=== PATIENT | female | born 1975 | race Caucasian/White ===

== ENCOUNTER → 2017-03-17 | Outpatient (CLI) | payer OTHER | END | disposition home or self-care (01) | LOC: CFH 13:37 | PROVIDERS: ATTEND Nurse Practitioner | DX: N63 Unspecified lump in breast (principal) | CPT/HCPCS: 76641; G0204 ==

== ENCOUNTER → 2017-03-17 | Outpatient (CLI) | payer OTHER ==
[2017-03-17 07:34] LABS: BLOOD UREA NITROGEN 12 mg/dL (7-18)
[2017-03-17 07:59] LABS: ASPARTATE AMINO TRANSFERASE 17 U/L (15-37)
[2017-03-18 13:06] LABS: CREATININE URINE 194.5 mg/dL (Not Estab.)
[2017-03-23 01:08] LABS: FREE T4 BY DIALYSIS/MASS SPEC 0.92 ng/dL (.)
== END | disposition home or self-care (01) ==
LOC: LAB 07:03
PROVIDERS: ATTEND Internal Medicine Critical Care Medicine
DX: I10 Essential (primary) hypertension (principal); R00.2 Palpitations
CPT/HCPCS: 36415; 80053; 80061; 82043; 82570; 82607; 84439; 84443; 84479; 85025; 86376

== ENCOUNTER → 2017-03-23 | Outpatient (CLI) | payer OTHER | END | disposition home or self-care (01) | LOC: LAB 16:39 | PROVIDERS: ATTEND Nurse Practitioner | DX: E83.52 Hypercalcemia (principal) | CPT/HCPCS: 36415; 82310; 82330; 83970 ==

== ENCOUNTER → 2017-03-24 | Outpatient (CLI) | payer OTHER | END | disposition home or self-care (01) | LOC: CVU 07:31 | PROVIDERS: ATTEND Internal Medicine Cardiovascular Disease | DX: I51.7 Cardiomegaly (principal); I34.0 Nonrheumatic mitral (valve) insufficiency; I37.1 Nonrheumatic pulmonary valve insufficiency; I10 Essential (primary) hypertension | CPT/HCPCS: 93306 ==

== ENCOUNTER → 2017-04-22 | Outpatient (CLI) | payer OTHER ==
[~2017-04-22] MED LIST: ESTR1PAT65 TD; IBUP200T5 PO; VALS80TA3 PO
[2017-04-22 11:39] LABS: ASPARTATE AMINO TRANSFERASE 14 U/L (15-37); BLOOD UREA NITROGEN 12 mg/dL (7-18)
== END | disposition home or self-care (01) ==
LOC: STAR 10:26
PROVIDERS: ATTEND Surgery
DX: Z01.818 Encounter for other preprocedural examination (principal)
CPT/HCPCS: 36415; 80053; 93005

== ENCOUNTER 2017-05-02 06:05 | Observation (INO) | payer OTHER ==
[~2017-05-02] VITALS: Ht 170.2 cm; Wt 134.0 kg
[2017-05-02 06:30] VITALS: BP 138/83
[2017-05-02] MEDS ORDERED: BUPIVACAINE/PF-EPI 0.5% 1:200K ONE (06:51)
[2017-05-02] MEDS ORDERED: MIDAZOLAM 1 MG/ML, 2ML ONE (06:55)
[2017-05-02] MEDS ORDERED: FENTANYL PF 250 MCG/5ML ONE (06:55)
[2017-05-02] MEDS ORDERED: LACTATED RINGERS 1,000 ML IV SCH ×2 (06:56→18:30)
[2017-05-02] MEDS ORDERED: ONDANSETRON 2MG/ML, 2ML ONE (07:38)
[2017-05-02] MEDS ORDERED: PROPOFOL 10 MG/ML, 20ML ONE (07:38)
[2017-05-02] MEDS ORDERED: EPHEDRINE 50 MG/ML, 1ML ONE (07:38)
[2017-05-02] MEDS ORDERED: SUCCINYLCHOLINE 20 MG/ML, 10ML ONE (07:38)
[2017-05-02] MEDS ORDERED: METOCLOPRAMIDE 5 MG/ML, 2ML ONE (07:38)
[2017-05-02] MEDS ORDERED: LIDOCAINE 2%, 10ML ONE (07:38)
[2017-05-02] MEDS ORDERED: PROPOFOL 10 MG/ML, 50ML ONE (07:38)
[2017-05-02] MEDS ORDERED: DEXAMETHASONE 4 MG/ML, 1ML ONE (07:38)
[2017-05-02 09:22] LABS: IOPTH BASELINE 190 pg/mL; SAMPLE 5 %DROP IOPTH 85 %
[2017-05-02] MEDS: FENTANYL PF 100 MCG/2ML IV PRN ×2 (09:30→09:55)
[2017-05-02] MEDS ORDERED: FENTANYL PF 100 MCG/2ML ONE (09:30)
[2017-05-02] MEDS ORDERED: ACETAMINOPHEN 650 MG/20.3 ML UDC ONE (09:52)
[2017-05-02] MEDS ORDERED: OXYcodone 5 MG/5 ML ORAL.SOL UDC ONE (09:52)
[2017-05-02] MEDS ORDERED: ONDANSETRON 2MG/ML, 2ML IVPush PRN ×2 (10:00→18:30)
[2017-05-02] MEDS ORDERED: hydrALAzine 20 MG/ML, 1ML IV PRN (10:00)
[2017-05-02] MEDS ORDERED: OXYcodone 5 MG/5 ML ORAL.SOL UDC PO PRN (10:00)
[2017-05-02] MEDS ORDERED: METOCLOPRAMIDE 5 MG/ML, 2ML IV PRN (10:00)
[2017-05-02] MEDS ORDERED: ACETAMINOPHEN 325 MG TABLET PO PRN (10:00)
[2017-05-02] MEDS ORDERED: LABETALOL 5MG/ML, 20ML IV PRN (10:00)
[2017-05-02] MEDS ORDERED: HYDROmorphone 1 MG/ML, 1ML IV PRN (10:00)
[2017-05-02] MEDS ORDERED: HYDROcodone/APAP 5/325 TABLET ONE (13:48)
[2017-05-02] MEDS ORDERED: HYDROcodone/APAP 5/325 TABLET PO ONE (14:00)
[2017-05-02] MEDS ORDERED: HYDROcodone/APAP 5/325 TABLET PO PRN (18:00)
[2017-05-02 18:24] VITALS: BP 132/76
[2017-05-02] MEDS: KETOROLAC 30 MG/1 ML IV PRN (20:21)
[2017-05-03 00:01] VITALS: BP 105/61
[2017-05-03 04:17] VITALS: BP 116/62
[2017-05-03] MEDS: KETOROLAC 30 MG/1 ML IV PRN (05:05)
[2017-05-03 07:24] VITALS: BP 119/75
[2017-05-03] MEDS ORDERED: HYDR-3240 PO (10:08)
[2017-05-03] MEDS ORDERED: CALC-126 PO (10:09)
== END 2017-05-03 10:43 | disposition home or self-care (01) ==
LOC: OUT 06:05 → ORIP 17:19 → 4NOR 18:10 → DCLOUNGE 05-03 09:53
PROVIDERS: ADMIT Surgery; ATTEND Surgery
DX: E21.0 Primary hyperparathyroidism (principal); E66.01 Morbid (severe) obesity due to excess calories; R09.02 Hypoxemia; I10 Essential (primary) hypertension; R63.4 Abnormal weight loss; F17.210 Nicotine dependence, cigarettes, uncomplicated; Z90.710 Acquired absence of both cervix and uterus
CPT/HCPCS: 36415; 60500; 83970; 88305; 95865; 95940; 96374; 96376; G0378; J0330; J1100; J1885; J2250; J2405; J2704; J2765; J3010; J3490; J7120

== ENCOUNTER → 2017-06-27 | Outpatient (CLI) | payer OTHER ==
[~2017-06-27] MED LIST changes: +CALC-126 PO; +HYDR-3240 PO
== END | disposition home or self-care (01) ==
LOC: LAB 17:56
PROVIDERS: ATTEND Surgery
DX: E83.51 Hypocalcemia (principal)
CPT/HCPCS: 36415; 82310; 83970

== ENCOUNTER 2019-12-18 02:11 | Emergency (ER) | payer OTHER ==
[~2019-12-18] VITALS: Ht 172.7 cm; Wt 136.3 kg
[~2019-12-18 02:11] MED LIST changes: +IBUP-1902 PO; -IBUP200T5 PO
[2019-12-18] MEDS ORDERED: ACETAMINOPHEN 500 MG TABLET PO ONE (03:00)
[2019-12-18] MEDS ORDERED: ACETAMINOPHEN 500 MG TABLET ONE (03:02)
--- NOTE | 2019-12-18 03:05 | NUR ---
assessment made. hooked to monitor. medicated for fever.
[2019-12-18 03:07] LABS: BASOPHILS # (AUTO) 0.03 x10^3/uL (0-0.1); BASOPHILS % (AUTO) 1 % (0-1); EOSINOPHILS # (AUTO) 0.03 x10^3/uL (0-0.4); EOSINOPHILS % (AUTO) 1 % (1-7); LYMPHOCYTES # (AUTO) 0.89 x10^3/uL (1-3.4); LYMPHOCYTES % (AUTO) 21 % (22-44); MD NO; MEAN CORPUSCULAR HEMOGLOBIN 29.6 pg (27.0-34.8); MEAN CORPUSCULAR HGB CONC 34.3 g/dL (32.4-35.8); MEAN CORPUSCULAR VOLUME 86.2 fL (80-100); MEAN PLATELET VOLUME 9.3 fL (7.4-10.4); MONOCYTES # (AUTO) 0.72 x10^3/uL (0.2-0.8); MONOCYTES % (AUTO) 17 % (2-9); NEUTROPHILS # (AUTO) 2.66 x10^3/uL (1.8-6.8); NEUTROPHILS % (AUTO) 61 % (42-75); PLATELET COUNT 174 x10^3/uL (130-400); RED BLOOD COUNT 4.73 x10^6/uL (3.82-5.3); RED CELL DISTRIBUTION WIDTH 12.8 % (9.6-15.2)
[2019-12-18 03:14] LABS: ALBUMIN 3.7 g/dL (3.4-5.0); ANION GAP 7 mmol/L (5-15); CALCIUM 8.9 mg/dL (8.5-10.1); CHLORIDE 109 mmol/L (98-107); CREATININE 1.09 mg/dL (0.55-1.02)
--- NOTE | 2019-12-18 04:30 | NUR ---
re-evaluation done. patient discharged with instruction. verbalized understanding.
[2019-12-18 04:31] VITALS: BP 111/69
== END 2019-12-18 04:37 | disposition home or self-care (01) ==
LOC: ED 03:39
DX: B34.9 Viral infection, unspecified (principal); I10 Essential (primary) hypertension; F17.200 Nicotine dependence, unspecified, uncomplicated
CPT/HCPCS: 36415; 71045; 80048; 82040; 85025; 93005; 99285

== ENCOUNTER 2020-08-17 18:16 | Emergency (ER) | payer OTHER ==
[~2020-08-17] VITALS: Ht 172.7 cm; Wt 134.3 kg
[2020-08-17] MEDS ORDERED: SODIUM CHLORIDE FLUSH 10ML SYR IVF ONE (19:30)
[2020-08-17] MEDS ORDERED: DIAZEPAM 5 MG/ML, 2ML IV ONE (19:30)
[2020-08-17] MEDS ORDERED: DIAZEPAM 5 MG/ML, 2ML ONE (19:36)
[2020-08-17 20:21] VITALS: BP 136/82
== END 2020-08-17 21:04 | disposition home or self-care (01) ==
LOC: ED 20:56
DX: M54.12 Radiculopathy, cervical region (principal)
CPT/HCPCS: 72050; 96374; 99283; J3360

== ENCOUNTER → 2020-09-04 | Outpatient (CLI) | payer OTHER ==
[~2020-09-04] MED LIST changes: +GABA300C PO; +HYDR-3237 PO; +LOSA100T14 PO; +PANT40TA3 PO; +estradiol patch TD
[2020-09-04 14:35] LABS: MICROSCOPIC NOT IND
[2020-09-04 14:39] LABS: ALBUMIN 3.7 g/dL (3.4-5.0); ANION GAP 6 mmol/L (5-15); CALCIUM 9.3 mg/dL (8.5-10.1); CHLORIDE 107 mmol/L (98-107)
[2020-09-04 14:42] LABS: BASOPHILS % (AUTO) 1 % (0-1); EOSINOPHILS % (AUTO) 2 % (1-7); LYMPHOCYTES % (AUTO) 25 % (22-44); MEAN CORPUSCULAR HEMOGLOBIN 28.6 pg (27.0-34.8); MEAN CORPUSCULAR HGB CONC 33.2 g/dL (32.4-35.8); MEAN PLATELET VOLUME 8.6 fL (7.4-10.4); MONOCYTES % (AUTO) 9 % (2-9); NEUTROPHILS % (AUTO) 63 % (42-75); PLATELET COUNT 285 x10^3/uL (130-400); RED BLOOD COUNT 4.74 x10^6/uL (3.82-5.3)
[2020-09-04 14:43] LABS: ALANINE AMINOTRANSFERASE 22 U/L (12-78); ALKALINE PHOSPHATASE 75 U/L (45-117); BILIRUBIN,TOTAL 0.3 mg/dL (0.2-1.0); CREATININE 0.84 mg/dL (0.55-1.02); TOTAL PROTEIN 7.5 g/dL (6.4-8.2)
[2020-09-04 14:47] LABS: MD NO
[2020-09-04 14:54] LABS: INTERNATIONAL NORMALIZED RATIO 0.9 (0.93-1.1); PROTHROMBIN TIME 9.6 Seconds (9.6-11.5)
== END | disposition home or self-care (01) ==
LOC: STAR 12:55
PROVIDERS: ATTEND Neurological Surgery
DX: Z01.812 Encounter for preprocedural laboratory examination (principal); Z01.810 Encounter for preprocedural cardiovascular examination; Z01.811 Encounter for preprocedural respiratory examination; Z20.828 Contact with and (suspected) exposure to other viral communicable diseases; R82.90 Unspecified abnormal findings in urine; R94.31 Abnormal electrocardiogram [ECG] [EKG]; R79.1 Abnormal coagulation profile; M50.122 Cervical disc disorder at C5-C6 level with radiculopathy; M48.02 Spinal stenosis, cervical region; M50.121 Cervical disc disorder at C4-C5 level with radiculopathy
CPT/HCPCS: 36415; 71046; 80053; 81003; 85025; 85610; 85730; 87635; 93005

== ENCOUNTER 2020-09-09 05:40 | Inpatient (IN) | payer OTHER ==
[~2020-09-09] VITALS: Ht 170.2 cm; Wt 139.5 kg
[2020-09-09 06:07] VITALS: BP 142/93
[2020-09-09] MEDS ORDERED: CHLORHEXIDINE 15 ML UDC ONE (06:12)
[2020-09-09] MEDS ORDERED: BUPIVACAINE/PF 0.5% ONE (06:23)
[2020-09-09] MEDS ORDERED: EPINEPHRINE 1 MG/ML, 1ML ONE (06:23)
[2020-09-09] MEDS ORDERED: BACITRACIN 50,000 UNIT ONE (06:24)
[2020-09-09] MEDS ORDERED: LACTATED RINGERS 1,000 ML IV SCH (06:30)
[2020-09-09] MEDS ORDERED: CHLORHEXIDINE 15 ML UDC MM ONE (06:30)
[2020-09-09] MEDS ORDERED: MIDAZOLAM 1 MG/ML, 2ML ONE (06:52)
[2020-09-09] MEDS ORDERED: FENTANYL PF 250 MCG/5ML ONE (06:52)
[2020-09-09] MEDS ORDERED: DIPHENHYDRAMINE 50 MG/ML, 1ML IVPush PRN ×2 (07:00→10:00)
[2020-09-09] MEDS ORDERED: PROMETHAZINE 25 MG/ML, 1ML IVPush PRN (07:00)
[2020-09-09] MEDS ORDERED: HYDROcodone/APAP 7.5-325MG/15ML UDC PO PRN (07:00)
[2020-09-09] MEDS ORDERED: MEPERIDINE/PF 25MG/0.5ML IVPush PRN (07:00)
[2020-09-09] MEDS ORDERED: hydrALAzine 20 MG/ML, 1ML IV PRN (07:00)
[2020-09-09] MEDS ORDERED: HALOPERIDOL 5 MG/ML IV PRN (07:00)
[2020-09-09] MEDS ORDERED: HYDROmorphone 1 MG/ML, 1ML INJ IVPush PRN (07:00)
[2020-09-09] MEDS ORDERED: CEFAZOLIN 1,000 MG ONE ×2 (07:02→08:58)
[2020-09-09] MEDS ORDERED: FENTANYL PF 100 MCG/2ML ONE ×3 (08:54→09:55)
[2020-09-09] MEDS ORDERED: DEXAMETHASONE 4 MG/ML, 1ML ONE (08:58)
[2020-09-09] MEDS ORDERED: GLYCOPYRROLATE 0.2MG/1ML, 5ML ONE (08:58)
[2020-09-09] MEDS ORDERED: PROPOFOL 10 MG/ML, 20ML ONE (08:58)
[2020-09-09] MEDS ORDERED: ROCURONIUM 10MG/ML,5ML ONE (08:58)
[2020-09-09] MEDS ORDERED: SUCCINYLCHOLINE 20 MG/ML, 10ML ONE (08:58)
[2020-09-09] MEDS ORDERED: ONDANSETRON 2MG/ML, 2ML ONE (08:58)
[2020-09-09] MEDS ORDERED: NEOSTIGMINE 1 MG/ML, 10ML ONE (08:58)
[2020-09-09] MEDS: FENTANYL PF 100 MCG/2ML IV PRN ×4 (09:35→10:12)
[2020-09-09] MEDS ORDERED: LABETALOL 5MG/ML, 20ML ONE (09:45)
[2020-09-09] MEDS: LABETALOL 5MG/ML, 20ML IV PRN ×2 (09:49→10:04)
[2020-09-09] MEDS ORDERED: HYDROcodone/APAP 7.5-325MG/15ML UDC ONE (09:56)
[2020-09-09] MEDS ORDERED: PROMETHAZINE 25 MG/ML, 1ML IM PRN (10:00)
[2020-09-09] MEDS ORDERED: METHOCARBAMOL 1,000 MG in DEXTROSE 5% 100 ML IV ONE (10:00)
[2020-09-09] MEDS ORDERED: LOSARTAN 100 MG TAB PO SCH (10:00)
[2020-09-09] MEDS: SODIUM CHLORIDE FLUSH 10ML SYR IVF SCH ×2 (10:00→20:30)
[2020-09-09] MEDS ORDERED: BISACODYL 10 MG SUPP PR PRN (10:00)
[2020-09-09] MEDS ORDERED: HYDROcodone/APAP 5/325 TABLET PO PRN (10:00)
[2020-09-09] MEDS ORDERED: ONDANSETRON 2MG/ML, 2ML IVPush PRN (10:00)
[2020-09-09] MEDS ORDERED: SENNA/DOCUSATE TABLET PO PRN (10:00)
[2020-09-09] MEDS ORDERED: ACETAMINOPHEN 325 MG TABLET PO PRN (10:00)
[2020-09-09] MEDS ORDERED: PHARMACY MAY ADJ FOR RENAL FX MC PRN (10:00)
[2020-09-09] MEDS ORDERED: MAGNESIUM HYDROXIDE 8%, 30ML UDC PO PRN (10:00)
[2020-09-09] MEDS: PANTOPRAZOLE 40MG TABLET PO SCH (10:00)
[2020-09-09] MEDS ORDERED: HYDROmorphone 1 MG/ML, 1ML INJ ONE (11:06)
[2020-09-09] MEDS: GABAPENTIN 300 MG CAPSULE PO SCH ×3 (13:17→20:29)
[2020-09-09] MEDS: HYDROcodone/APAP 10/325 MG TABLET PO PRN ×3 (13:18→23:42)
[2020-09-09 13:33] VITALS: BP 80/54
[2020-09-09] MEDS: DEXAMETHASONE 4 MG/ML, 1ML IVPush SCH ×2 (16:03→20:29)
[2020-09-09] MEDS: D5%-0.9% NACL+KCL 20MEQ 1,000 ML IV SCH (16:29)
[2020-09-09] MEDS: CEFAZOLIN PMX 1GM/50ML 50 ML IVPB SCH ×2 (16:29→23:42)
[2020-09-09] MEDS: HYDROmorphone 1 MG/ML, 1ML INJ IVPush PRN ×2 (16:39→20:28)
[2020-09-09] MEDS: METHOCARBAMOL 750 MG TABLET PO PRN ×2 (16:44→23:42)
[2020-09-09 20:29] VITALS: BP 123/77
[2020-09-09] MEDS: LOSARTAN 100 MG TAB PO SCH (20:29)
[2020-09-10] MEDS: D5%-0.9% NACL+KCL 20MEQ 1,000 ML IV SCH ×3 (03:00→23:00)
[2020-09-10] MEDS: DEXAMETHASONE 4 MG/ML, 1ML IVPush SCH ×4 (03:25→22:09)
[2020-09-10] MEDS: HYDROcodone/APAP 10/325 MG TABLET PO PRN ×5 (03:25→22:09)
[2020-09-10 03:56] VITALS: BP 129/79
[2020-09-10 06:51] VITALS: BP 119/69
[2020-09-10] MEDS: SODIUM CHLORIDE FLUSH 10ML SYR IVF SCH ×2 (09:00→21:00)
[2020-09-10] MEDS: GABAPENTIN 300 MG CAPSULE PO SCH ×3 (09:04→22:09)
[2020-09-10] MEDS: PANTOPRAZOLE 40MG TABLET PO SCH (09:04)
[2020-09-10] MEDS: METHOCARBAMOL 750 MG TABLET PO SCH ×2 (10:14→17:49)
[2020-09-10 13:30] VITALS: BP 137/84
[2020-09-10 21:01] VITALS: BP 141/86
[2020-09-10] MEDS: LOSARTAN 100 MG TAB PO SCH (22:09)
[2020-09-11] MEDS: METHOCARBAMOL 750 MG TABLET PO SCH ×2 (06:08→09:07)
[2020-09-11] MEDS: DEXAMETHASONE 4 MG/ML, 1ML IVPush SCH ×2 (06:09→09:00)
[2020-09-11] MEDS: GABAPENTIN 300 MG CAPSULE PO SCH (08:21)
[2020-09-11] MEDS: PANTOPRAZOLE 40MG TABLET PO SCH (08:21)
[2020-09-11 08:24] VITALS: BP 134/87
[2020-09-11] MEDS: SODIUM CHLORIDE FLUSH 10ML SYR IVF SCH (08:30)
[2020-09-11] MEDS ORDERED: METH750T87 PO (08:40)
[2020-09-11] MEDS: D5%-0.9% NACL+KCL 20MEQ 1,000 ML IV SCH (09:00)
== END 2020-09-11 10:10 | disposition home or self-care (01) | DRG 473 ==
LOC: ORIP 05:40 → 4NE 11:50 → DCLOUNGE 09-11 09:56
PROVIDERS: ADMIT Neurological Surgery; ATTEND Neurological Surgery
PROC: 0RT30ZZ Resection of Cervical Vertebral Disc, Open Approach (ICD-10-PCS; 2020-09-09)
PROC: 0RG20A0 Fusion of 2 or more Cervical Vertebral Joints with Interbody Fusion Device, Anterior Approach, Anterior Column, Open Approach (ICD-10-PCS; principal; 2020-09-09 07:00)
PROC: 5A09357 Assistance with Respiratory Ventilation, Less than 24 Consecutive Hours, Continuous Positive Airway Pressure (ICD-10-PCS; 2020-09-10)
DX: M48.02 Spinal stenosis, cervical region (principal); M50.121 Cervical disc disorder at C4-C5 level with radiculopathy; Z91.040 Latex allergy status
CPT/HCPCS: 36415; 72040; S0020; 86850; 86900; C1713; G0378; J0171; J0690; J1100; J1170; J2250; J2405; J2704; J2710; J3010; C1762; C1763; C1889; J0330; J2800; J3480; J7120

== ENCOUNTER → 2020-10-23 | Outpatient (CLI) | payer OTHER ==
[~2020-10-23] MED LIST changes: +METH750T87 PO
== END | disposition home or self-care (01) ==
LOC: RAD 11:38
PROVIDERS: ATTEND Physician Assistant Surgical
DX: M54.12 Radiculopathy, cervical region (principal)
CPT/HCPCS: 72040